=== PATIENT | female | born 1945 | race Caucasian/White ===

== ENCOUNTER 2016-10-24 12:19 | Day surgery (SDC) | payer MEDICARE, OTHER ==
--- NOTE | ~2016-10-24 | EGD ---
EGD REPORT [facility] [address] [address] NAME: KIM MARTÍNEZ : [birth year] STATUS : [place] [facility] [place]#: [id number] AGE: 71 ADM/REG DATE : 10/24/16 MR#: [id number] REPORT SERV DATE: 10/24/16 DICTATED BY: DATE: REPORT STATUS : Draft TRANSCRIBED BY: [employer] DATE: 10/24/16 Endoscopy Center Patient Name: Kim Martínez Date of : 1945 Attending MD: ROLAND RODRIGUEZ MD Procedure Date No Time: 10/24/2016 Procedure: Colonoscopy Indications: Chronic diarrhea, Heme positive stool Referring MD: MILLY PAYAN Medicines: See the Anesthesia note for documentation of the administered medications Complications: No immediate complications. Estimated blood loss: Minimal. Procedure: Pre-Anesthesia Assessment: - ASA Grade Assessment: III - A patient with severe systemic disease. - Prior to the procedure, a History and Physical was performed, and patient medications and allergies were reviewed. The patient's tolerance of previous anesthesia was also reviewed. The risks and benefits of the procedure and the sedation options and risks were discussed with the patient. All questions were answered, and informed consent was obtained. Prior Anticoagulants: The patient has taken Coumadin (warfarin), last dose was 4 days prior to procedure. After reviewing the risks and benefits, the patient was deemed in satisfactory condition to undergo the procedure. After I obtained informed consent, the scope was passed under direct vision. Throughout the procedure, the patient's blood pressure, pulse, and oxygen saturations were monitored continuously. The PCF H190L [id number] was introduced through the anus and advanced to the cecum, identified by appendiceal orifice and ileocecal valve. The ileocecal valve, appendiceal orifice and rectum were photographed. The entire colon was examined. The colonoscopy was performed without difficulty. The patient tolerated the procedure well. The quality of the bowel preparation was adequate. Findings: The perianal and digital rectal examinations were normal. The colon (entire examined portion) appeared normal. This was biopsied with a cold forceps for histology. Non-bleeding internal hemorrhoids were found during retroflexion and were Grade I (internal hemorrhoids that do not prolapse). EGD REPORT [place] [id number] [facility] [place]. [address] NAME: KIM MARTÍNEZ : [birth year] [place]US : [place] [facility] [place]#: [id number] AGE: 71 ADM/REG DATE : 10/24/16 MR#: [id number] REPORT SERV DATE: 10/24/16 DICTATED BY: DATE: REPORT STATUS : Draft TRANSCRIBED BY: [employer] DATE: 10/24/16 No other significant abnormalities were identified in a careful examination of the remainder of the colon. Impression: - The entire examined colon is normal. Biopsied. - Non-bleeding internal hemorrhoids. Recommendation: - Patient has a contact number available for emergencies. The signs and symptoms of potential delayed complications were discussed with the patient. Return to normal activities tomorrow. Written discharge instructions were provided to the patient. - Regular diet. - Discharge patient to home. - Await pathology results. - Repeat colonoscopy is not recommended for surveillance. - Return to nurse practitioner in 4 weeks. - Restart your coumadin at your regular dose today. Procedure Code(s): --- Professional --- 78691, Colonoscopy, flexible, proximal to splenic flexure; with biopsy, single or multiple Diagnosis Code(s): --- Professional --- K64.0, First degree hemorrhoids K52.9, Noninfective gastroenteritis and colitis, unspecified R19.5, Other fecal abnormalities CPT copyright 2013 [employer]. All rights reserved. The codes documented in this report are preliminary and upon logistics loss prevention manager review may be revised to meet current compliance requirements. ROLAND RODRIGUEZ MD 10/24/2016 3:45 PM This report has been signed electronically. Number of Addenda: 0 Note Initiated On: 10/24/2016 3:00 PM Scope Withdrawal Time 0 hours 9 minutes 25 seconds [address] [id number]
--- NOTE | ~2016-10-24 | EGD ---
EGD REPORT [facility] [address] [address] NAME: KIM MARTÍNEZ : [birth year] STATUS : REG [facility] [place] PAT#: [id number] AGE: 71 ADM/REG DATE : 10/24/16 MR#: [id number] REPORT SERV DATE: 10/24/16 DICTATED BY: NADEEM RODRIGUEZ DATE: 10/24/16 REPORT STATUS : Draft TRANSCRIBED BY: [facility] DATE: 10/24/16 Endoscopy Center Patient Name: Kim Martínez Date of : 1945 Attending MD: ROLAND RODRIGUEZ MD Procedure Date No Time: 10/24/2016 Procedure: Upper GI endoscopy Indications: Heme positive stool, Nausea Referring MD: MILLY PAYAN Medicines: See the Anesthesia note for documentation of the administered medications Complications: No immediate complications. Estimated blood loss: Minimal. Procedure: Pre-Anesthesia Assessment: - ASA Grade Assessment: III - A patient with severe systemic disease. - Prior to the procedure, a History and Physical was performed, and patient medications and allergies were reviewed. The patient's tolerance of previous anesthesia was also reviewed. The risks and benefits of the procedure and the sedation options and risks were discussed with the patient. All questions were answered, and informed consent was obtained. Prior Anticoagulants: The patient has taken Coumadin (warfarin), last dose was 4 days prior to procedure. After reviewing the risks and benefits, the patient was deemed in satisfactory condition to undergo the procedure. After obtaining informed consent, the endoscope was passed under direct vision. Throughout the procedure, the patient's blood pressure, pulse, and oxygen saturations were monitored continuously. The GIF H190 [id number] was introduced through the mouth, and advanced to the second part of duodenum. The upper GI endoscopy was accomplished without difficulty. The patient tolerated the procedure well. Findings: The examined duodenum was normal. Diffuse mild inflammation characterized by congestion (edema) and erythema was found in the gastric antrum. Biopsies were taken with a cold forceps for histology. The cardia and gastric fundus were normal on retroflexion. The examined esophagus was normal. Impression: - Normal examined duodenum. EGD REPORT [address] [address] NAME: KIM MARTÍNEZ : [birth year] STATUS : REG [facility] [place] PAT#: [id number] AGE: 71 ADM/REG DATE : 10/24/16 MR#: [id number] REPORT SERV DATE: 10/24/16 DICTATED BY: NADEEM RODRIGUEZ DATE: 10/24/16 REPORT STATUS : Draft TRANSCRIBED BY: [employer] DATE: 10/24/16 - Gastritis. Biopsied. - Normal esophagus. Recommendation: - Patient has a contact number available for emergencies. The signs and symptoms of potential delayed complications were discussed with the patient. Return to normal activities tomorrow. Written discharge instructions were provided to the patient. - Regular diet. - Discharge patient to home. - Continue present medications. - Await pathology results. - Restart your coumadin at your regular dose today. Procedure Code(s): --- Professional --- 64024, Esophagogastroduodenoscopy, flexible, transoral; with biopsy, single or multiple Diagnosis Code(s): --- Professional --- K29.70, Gastritis, unspecified, without bleeding R19.5, Other fecal abnormalities R11.0, Nausea CPT copyright 2013 [employer]. All rights reserved. The codes documented in this report are preliminary and upon disc inspector review may be revised to meet current compliance requirements. ROLAND RODRIGUEZ MD 10/24/2016 3:27 PM This report has been signed electronically. Number of Addenda: 0 Note Initiated On: 10/24/2016 3:07 PM Scope Withdrawal Time 0 hours 0 minutes 0 seconds [address] [address]
[~2016-10-24 12:19] MED LIST: ADVAIR115P INH; ADVAIR250 INH; ALVESCO; ALVESCO INH; APRES10B PO; APRES25 PO; ATROVENT HFA17 MCG INH; BIOTIN5 MG PO; BROVANA INH; BUDESONIDE INH; CADUET5 MG/20 MG PO; CARD30 PO; CEFAZ1 IM; COUMADIN6 MG PO; CRESTOR10 PO; CRESTOR5 MG PO; DEMA10T PO; DEMA20 PO; DIOVAN HCT320 MG/25 PO; DRISDOL50000 UNT PO; DSS PO; ENDOCET1 TA3 PO; EPOGEN10000 MG/M SC; FISH-EPA1000 MG PO; FLORASTOR250 MG PO; HYDROCHLOROT25 MG PO; JANUMET1 TA1 PO; JANUVIA100 MG PO; KDUR10 PO; KLOR-CON M2020 MEQ PO; L40 PO; METOPROLOL TARTRATE PO; NASONEX NAS; NEXIUM40 PO; NORV5 PO; PCET PO; PRILO PO; PRILOSEC40 MG PO; PROAIR HFA INH; PROCRIT10 IV; PROCRIT10 SC; PROCRIT40 IV; PROCRIT40 SC; RENVELA800 MG PO; REPLIVA IV; ROCALTROL0.5 MCG PO; SENSIPAR30 MG PO; SINGULAIR1 PO; SPIRIVA INH; TOPXL100 PO; VITAMIN C250 MG PO; VITAMIN D2 PO; VITC500 PO; VITD PO; WELLXL300 PO; XOPEN0.5ML INH; ZOFRAN ODT4 MG PO; ZOFRAN4 PO
[2016-10-24 14:15] LABS: CHLORIDE, SERUM 97 MMOL/L (96-112); CO2 (CARBON DIOXIDE) 28 MMOL/L (24-34); GLUCOSE, SERUM 103 MG/DL (60-99)
[2016-10-24 14:17] LABS: BUN (BLOOD UREA NITROGEN) 30 MG/DL (6-23); CALCIUM, SERUM 9.6 MG/DL (8.5-10.4); CREATININE 5.88 MG/DL (0.55-1.02); GFR AFRICAN AMERICAN 8 ML/MIN (>=60); GFR NON AFRICAN AMERICAN 7 ML/MIN (>=60); POTASSIUM, SERUM 5.3 MMOL/L (3.5-5.3); SODIUM, SERUM 132 MMOL/L (135-148)
== END 2016-10-24 23:59 | disposition home or self-care (01) ==
LOC: DMU 12:19
PROVIDERS: Internal Medicine Gastroenterology
PROC: 0DBE8ZX Excision of Large Intestine, Via Natural or Artificial Opening Endoscopic, Diagnostic (ICD-10-PCS; principal; 2016-10-24 14:00)
PROC: 0DB68ZX Excision of Stomach, Via Natural or Artificial Opening Endoscopic, Diagnostic (ICD-10-PCS; 2016-10-24 14:00)
DX: K52.9 Noninfective gastroenteritis and colitis, unspecified (principal); K64.0 First degree hemorrhoids; R19.5 Other fecal abnormalities; K29.70 Gastritis, unspecified, without bleeding; R11.0 Nausea; J45.909 Unspecified asthma, uncomplicated; J44.9 Chronic obstructive pulmonary disease, unspecified; G47.33 Obstructive sleep apnea (adult) (pediatric); E11.9 Type 2 diabetes mellitus without complications; E11.22 Type 2 diabetes mellitus with diabetic chronic kidney disease; I12.0 Hypertensive chronic kidney disease with stage 5 chronic kidney disease or end stage renal disease; N18.6 End stage renal disease; H35.30 Unspecified macular degeneration; Z79.899 Other long term (current) drug therapy; Z79.01 Long term (current) use of anticoagulants
CPT/HCPCS: 80048; 88305

== ENCOUNTER 2016-11-25 09:31 | Day surgery (SDC) | payer MEDICARE, OTHER ==
--- NOTE | ~2016-11-25 | PREOPHP ---
PreOp History and Physical [facility] [address] [place]. [address] NAME: MECHELLE MARTÍNEZ : [birth year] STATUS : [facility]#: [id number] AGE: 71 ADM/REG DATE : 11/25/16 MR#: [id number] REPORT SERV DATE: 11/25/16 DICTATED BY: THA BATEMAN III DATE: 11/17/16 REPORT STATUS : Draft TRANSCRIBED BY: DILLAN DATE: 11/17/16 HISTORY OF PRESENT ILLNESS: This 71-year-old female comes to the operating room for laparoscopic peritoneal dialysis catheter placement, possible laparotomy. The patient has a history of end-stage renal disease. She is currently dependent on hemodialysis. The patient had a peritoneal dialysis catheter, which had been placed in 2012. The catheter functioned well to her. Recently, the patient presented with peritonitis. Her catheter was removed in July of this year. She now was felt to have recovered for her peritonitis and comes now for laparoscopic peritoneal dialysis catheter placement, possible laparotomy. PAST MEDICAL HISTORY: 1. End-stage renal disease, dialysis dependent. 2. History of recent peritonitis in July of this year, due to methicillin-sensitive Staphylococcus aureus. Her catheter was removed in July. 3. Obesity. 4. Atrial fibrillation, on Coumadin chronically. 5. Hypertension. 6. Chronic obstructive pulmonary disease. PAST SURGICAL HISTORY: Includes laparoscopic peritoneal dialysis catheter placement, cholecystectomy, hysterectomy, and pacemaker placement. REVIEW OF SYSTEMS: The patient complains of reflux, indigestion, diarrhea, fatigue, palpitations, joint pain, back pain, wheezing, and shortness of breath. Her 14-point review of systems is otherwise unremarkable. The patient is chronically ill. She cannot walk long distances. SOCIAL HISTORY: The patient lives in [place]. She has no history of tobacco or alcohol use. ALLERGIES: IV CONTRAST MEDIA. MEDICATIONS: At home include Coumadin, Rocaltrol, Crestor, Cardizem, Renvela, biotin, vitamin D, Sensipar, Zofran, Demadex, Prilosec, and Epogen. PHYSICAL EXAMINATION: GENERAL: This is a chronically ill-appearing, obese female, in no acute distress. She is alert and oriented x3. She is in a wheelchair in the office. VITAL SIGNS: Blood pressure 131/77, pulse 97, temperature 97.8. HEENT: Unremarkable. Cranial nerves 2 through 12 are normal. LUNGS: Clear. CARDIAC: Normal. ABDOMEN: Soft, nontender. EXTREMITIES: Unremarkable. ASSESSMENT: This is a 71-year-old female with: 1. End-stage renal disease, dialysis dependent, with need for repair for laparoscopic replacement of peritoneal dialysis catheter, possible laparotomy. 2. Obesity. PreOp History and Physical [address] [address] NAME: MECHELLE MARTÍNEZ : [birth year] STATUS : [facility]#: [id number] AGE: 71 ADM/REG DATE : 11/25/16 MR#: [id number] REPORT SERV DATE: 11/25/16 DICTATED BY: THA BATEMAN III DATE: 11/17/16 REPORT STATUS : Draft TRANSCRIBED BY: DILLAN DATE: 11/17/16 3. Hypertension. 4. Atrial fibrillation. 5. History of chronic obstructive pulmonary disease. PLAN: The patient comes to the operating room now for laparoscopic peritoneal dialysis catheter placement, possible laparotomy. This procedure, the risks, benefits, and alternatives, including but not limited to the risk for bleeding, infection, enterotomy, injury to abdominal structure, postop small bowel obstruction, ileus, leakage of dialysis fluid from her incisions, infection of the catheter, migration or occlusion requiring revision or replacement, possible need for laparotomy, and unforeseen complications including deep venous thrombosis, pulmonary embolus, myocardial infarction, stroke, pneumonia, and , have been explained to the patient prior to surgery. The fact that this is a major operation with risk for major morbidity and mortality has been explained with increased risks for infections or occlusion of the catheter or nonfunctioning of catheter due to her previous peritonitis has been explained. The patient's questions have been answered. She clearly understands the risks and agrees to surgery as planned. BARRY/DILLAN Tha Bateman III, M.D. / [phone]
--- NOTE | ~2016-11-25 | OP ---
Record Of Operation [facility] [address] [place]. [address] NAME: MECHELLE MARTÍNEZ : [birth year] STATUS : REG [facility]#: [id number] AGE: 71 ADM/REG DATE : 11/25/16 MR#: [id number] REPORT SERV DATE: 11/25/16 DICTATED BY: THA KULKARNI III DATE: 11/25/16 REPORT STATUS : Draft TRANSCRIBED BY: MODL DATE: 11/25/16 DATE OF PROCEDURE: 11/25/2016 PREOPERATIVE DIAGNOSIS: End-stage renal disease with need for peritoneal dialysis catheter placement. POSTOPERATIVE DIAGNOSIS: End-stage renal disease with need for peritoneal dialysis catheter placement. PROCEDURE: Laparoscopic peritoneal dialysis catheter placement. SURGEON: Tha Kulkarni M.D. ANESTHESIA: General with intubation. COMPLICATIONS: None. ESTIMATED BLOOD LOSS: Less than 5 mL. SPECIMENS: None. DRAINS: None. COUNT: Correct x3. BRIEF HISTORY: This 71-year-old female has a history of end-stage renal disease, and is dialysis dependent. For about four years, she had a peritoneal dialysis catheter which functioned well until July of this year. She developed C. difficile colitis associated with peritonitis and infection of the catheter requiring removal of the catheter in July of this year. She has been on hemodialysis since that time. The patient is very anxious to resume peritoneal dialysis, and she comes now for laparoscopic peritoneal dialysis catheter placement, possible laparotomy. This procedure, the risks, benefits, and alternatives, including but not limited to the risk for bleeding, infection, enterotomy, injury to any abdominal structure, postop small bowel obstruction, ileus, infection of the catheter, peritonitis requiring removal of the catheter, dislodgement or occlusion, or migration of the catheter requiring revision or replacement, possible need for laparotomy, possibility that she may not be a candidate for further peritoneal dialysis due to adhesions from her previous peritonitis and unforeseen complications including deep venous thrombosis, pulmonary embolus, myocardial infarction, stroke, pneumonia, and were fully explained to the patient prior to the surgery. The fact that she would be at increased risk for thromboembolic complications while her Coumadin was held perioperatively was explained as well as the increased risk of bleeding because of the use of this medication. The patient's questions were answered. She understood the risks and agreed to the surgery as planned. Record Of Operation [facility] [address] [facility] [place]. [address] NAME: MECHELLE MARTÍNEZ : [birth year] [place] [facility] [place] [id number] AGE: 71 ADM/REG DATE : 11/25/16 MR#: [id number] REPORT SERV DATE: 11/25/16 DICTATED BY: THA KULKARNI III DATE: 11/25/16 REPORT STATUS : Draft TRANSCRIBED BY: MODL DATE: 11/25/16 DESCRIPTION OF PROCEDURE: After being properly identified and after discussing the risks and benefits of the surgery with the patient and family again in the preoperative area, she was taken to the operating room, and placed in the supine position on the operating room table. General anesthesia was administered, and she was intubated without difficulty. The abdomen was prepped and draped sterilely in the usual fashion. After an appropriate "time-out" per JCAHO standards, a small transverse incision was made below the umbilicus. The incision was continued through the subcutaneous tissue. Hemostasis was controlled with the cautery. The incision was continued through the fascia. The abdominal cavity was entered under direct vision. A #10 balloon-tipped Origin trocar was placed under direct vision into the peritoneal cavity. The balloon was inflated. The abdominal cavity was insufflated to about 13 mmHg with carbon dioxide. Correct position of the air in the peritoneal cavity was confirmed by palpation. The laparoscope was placed through this. The abdominal cavity appeared to be clear with no significant adhesions. A 5 mm trocar was then placed through the right lateral abdominal wall, just above and lateral to the umbilicus, under direct vision of the laparoscope. A 5 mm laparoscope was then placed through this 5 mm trocar. The patient was placed in the Trendelenburg position. The peritoneal dialysis catheter was then placed through the 10 mm trocar and placed into the pelvis in the rectal cul-de-sac. A small incision was made in the suprapubic area and a suture passer was used to pass a 0 Prolene suture into the abdominal cavity, and to anchor the catheter to the fascia. This resulted in good mobilization of the catheter into the rectal cul-de-sac in the pelvis. The 10 mm trocar was then removed under direct vision of the laparoscope to assure hemostasis. Finally, the 5 mm trocar was removed under direct vision of the laparoscope to assure hemostasis. The inner cuff of the dialysis catheter was secured at the level of the fascia in the infraumbilical region with 0 Prolene pursestring suture. A subcutaneous tunnel was then made between the two trocar sites, and the end of the dialysis catheter was brought out through the right lateral abdominal wall 5 mm trocar site. The second cuff was left in the subcutaneous tissue. The subcutaneous tissue of the infraumbilical incision was closed with a running 3-0 chromic suture. The skin was closed with a running subcuticular 4-0 Monocryl stitch. The catheter was then connected to 500 mL bag of saline. The saline was allowed to flow through the catheter. It was noted to flow easily and rapidly with no resistance. The bag was then placed to the ground and the fluid was noted to egress out of the abdominal cavity by gravity with no resistance. The entire volume was removed. The skin incisions were closed with the running subcuticular 4-0 Monocryl stitches. A dry dressing was applied. Anesthesia was reversed, and the patient was taken to the recovery room in stable condition. She tolerated the procedure well. Her family was informed the results of the surgery. The patient will be discharged when stable and comfortable. Her family was advised that she should keep the wound clean and dry for at least one week, that she should resume her Coumadin today and have her INR checked in two to three days, that she should resume her usual medications, and that she should not drive for four to five days after the surgery or use narcotics. She has been asked to return to see me in two weeks Record Of Operation [address] [address] NAME: MECHELLE MARTÍNEZ : [birth year] [place] [facility] [place] [id number] AGE: 71 ADM/REG DATE : 11/25/16 MR#: [id number] REPORT SERV DATE: 11/25/16 DICTATED BY: THA KULKARNI III DATE: 11/25/16 REPORT STATUS : Draft TRANSCRIBED BY: MODRicky DATE: 11/25/16 follow up sooner or if any nausea, vomiting, fever, chills, wound drainage, or other problems prior to that time. She was given a prescription for Percocet 7.5 one t.i.d., #12, as needed for pain, which she was advised not to use while driving. RHJ/MODL Tha Kulkarni III, M.D. / [id number] CC: Renata Torres III, M.D.
[2016-11-25 10:39] LABS: HEMATOCRIT 40.4 % (36.0-48.0); HEMOGLOBIN 12.5 g/dL (12.0-16.0); MANUAL DIFF YES %; MEAN CORPUS HGB CONC 30.9 g/dL (32.0-36.0); MEAN CORPUSCULAR HEMOGLOB 30.2 pg (26.0-34.0); MEAN CORPUSCULAR VOLUME 97.6 fL (80-100); MEAN PLATELET VOLUME 10.1 fL (9.2-13.0); PLATELET COUNT 121 10/3/uL (150-400); RBC DISTRIBUTION WIDTH 15.5 % (12.0-16.0); RED CELL COUNT 4.14 10/6/uL (4.0-5.6); WHITE BLOOD CELLS 5.5 10/3/uL (4.5-10.5)
[2016-11-25 10:46] LABS: INTERNATIONAL NORMAL RATI 1.3 UNITS (-); PROTIME (NOT ORD) 15.9 SEC (12.0-14.5)
[2016-11-25 10:53] LABS: ALBUMIN 3.6 G/DL (3.5-5.0); ALKALINE PHOSPHATASE 94 U/L (45-117); BUN (BLOOD UREA NITROGEN) 54 MG/DL (6-23); CALCIUM, SERUM 9.1 MG/DL (8.5-10.4); CHLORIDE, SERUM 105 MMOL/L (96-112); CO2 (CARBON DIOXIDE) 24 MMOL/L (24-34); GFR AFRICAN AMERICAN 6 ML/MIN (>=60); GFR NON AFRICAN AMERICAN 6 ML/MIN (>=60); GLOBULIN 3.6 G/DL (2.5-4.1); GLUCOSE, SERUM 87 MG/DL (60-99); SGOT(AST) 11 U/L (5-40); SGPT(ALT) 8 U/L (5-65); SODIUM, SERUM 138 MMOL/L (135-148); TOTAL BILIRUBIN 0.5 MG/DL (0-1.2); TOTAL PROTEIN 7.2 G/DL (6.0-8.5)
[2016-11-25 11:46] LABS: BAND NEUTROPHILS 8 %; BASOPHILS 3 %; BASOPHILS ABSOLUTE (CALC) 0.17 10/3/uL (0.0-0.16); LYMPHOCYTES 14 %; LYMPHOCYTES ABSOLUTE (CALC) 0.77 10/3/uL (0.67-4.30); MONOCYTES 8 %; MONOCYTES ABSOLUTE (CALC) 0.44 10/3/uL (0.21-1.20); NEUTROPHILS ABSOLUTE (CALC) 4.13 10/3/uL (2.02-8.40); SEGMENTED NEUTROPHIL (0) 67 %; TOTAL NUCLEATED CELLS 100
[2016-11-25 11:47] LABS: PLATELET ESTIMATE SLT DEC (ADEQUATE); POLYCHROMASIA 1+ (2-5/OIF) (0-1/OIF)
== END 2016-11-25 17:05 | disposition home or self-care (01) ==
LOC: SDC 09:31
PROVIDERS: Surgery
PROC: 0WHG43Z Insertion of Infusion Device into Peritoneal Cavity, Percutaneous Endoscopic Approach (ICD-10-PCS; principal; 2016-11-25 11:30)
DX: Z49.02 Encounter for fitting and adjustment of peritoneal dialysis catheter (principal); E11.22 Type 2 diabetes mellitus with diabetic chronic kidney disease; I12.0 Hypertensive chronic kidney disease with stage 5 chronic kidney disease or end stage renal disease; N18.6 End stage renal disease; I48.91 Unspecified atrial fibrillation; Z99.2 Dependence on renal dialysis; E66.9 Obesity, unspecified; J44.9 Chronic obstructive pulmonary disease, unspecified; K21.9 Gastro-esophageal reflux disease without esophagitis; M54.9 Dorsalgia, unspecified; D64.9 Anemia, unspecified; I49.5 Sick sinus syndrome; Z79.01 Long term (current) use of anticoagulants; Z79.899 Other long term (current) drug therapy; Z91.041 Radiographic dye allergy status; Z91.048 Other nonmedicinal substance allergy status
CPT/HCPCS: 80053; 82962; 85025; 85610; 93005; A9270-GY; C1752; J0690; J2250; J2270; J2405; J2710; J3010